=== PATIENT | female | born 1950 | race Caucasian/White ===

== ENCOUNTER 2016-12-05 17:07 | Emergency (ER) | payer OTHER ==
[2016-12-05 17:30] LABS: BASOPHILS % 0.1 (0.0-1.5); EOSINOPHILS % 0.5 % (0.0-6.8); LYMPHOCYTES # 0.6 # k/uL (0.6-4.0); MEAN CORPUSCULAR HEMOGLOBIN 32.9 pg (28.0-34.0); MONOCYTES # 0.3 # k/uL (0.0-0.9); MONOCYTES % 3.4 % (0.0-11.0); NEUTROPHILS # 8.8 # k/uL (1.4-7.7)
[2016-12-05 17:44] LABS: eGFR (African) > 60; eGFR (Non-African) > 60
--- NOTE | 2016-12-05 18:10 | ED Physician Documentation ---
Altered Mental Status - HISTORIAN Historian: patient, other (daughters) - HPI Stated Complaint: bruising Chief Complaint: Altered Mental Status - ROS EYES/ENT: denies: problems with vision, sore throat, trouble swallowing CVS/RESP: none GI/: none MS/SKIN/LYMPH: none NEURO/PSYCH: headache - PAST HX Past History: confusion, other (hepatitis C) Surgeries/Procedures: none Immunizations: UTD - SOCIAL HX Smoking History: greater than 1 pack/day Alcohol Use: none Drug Use: none - FAMILY HX Family History: none - REVIEWED ASSESSMENTS Nursing Assessment Reviewed: Yes Vitals Reviewed: Yes <Noel Dave - Last Filed: 12/05/16 18:10> - HISTORIAN Historian: patient (cannot contribute to history), child (two sons and two daughters present) - HPI Last known Well Date: 12/04/16 Last Known Well Time: 20:00 Last known Well Code/Unknown Code: Unknown Character of Altered Mental Status: other (no memory of yesterday's events with children or of how injuries occurred) Context: other (unknown) Cognition is Usually: alert, oriented x3 (per children) Gait is Usually: walks w/o assistance Associated Symptoms: other (injuries) - ROS CVS/RESP: none GI/: none <JAYMIE DE LEON - Last Filed: 12/05/16 19:41> - HPI Additional Information: 66yo F here for eval of AMS and bruising. Daughters are at bedside, state they last spoke with her last night around 1999 and was completely normal without bruising. They found her on the floor today naked with bruising throughout her body, most notably on her face. She also has altered mental status, amnesia for most events yesterday and today believes in is 1990. She denies illicit drug use , etoh use, trauma. Denies MVC or domestic abuse. She tells me that her dog jumped on her, causing all of her bruising. All other systems reviewed and negative. (Noel Dave) - PAST HX Allergies/Adverse Reactions: Allergies Allergy/AdvReac Type Severity Reaction Status Date / Time loxapine HCl [From Loxitane] Allergy Verified 12/05/16 17:40 loxapine succinate Allergy Verified 12/05/16 17:40 [From Loxitane] Home Medications: Ambulatory Orders Medication Instructions Recorded Diazepam [Valium] 5 mg PO QDAY 12/05/16 Gabapentin [Neurontin] 100 mg PO BID 12/05/16 - VITAL SIGNS Vital Signs: Vital Signs Temp Pulse Resp BP Pulse Ox 98.4 F 80 16 133/80 97 12/05/16 17:21 12/05/16 17:21 12/05/16 17:21 12/05/16 17:21 12/05/16 17:21 (Noel Dave) (JAYMIE DE LEON) Progress <Noel Dave - Last Filed: 12/05/16 18:10> <JAYMIE DE LEON - Last Filed: 12/05/16 19:41> - Progress Progress: CT abdomen and pelvis with contrast CLINICAL HISTORY: Abdominal pain. Trauma. Nausea and vomiting. Elevated amylase. Contrast administered: 94 mL of Omnipaque. TECHNIQUE: CT of the abdomen and pelvis is performed with intravenous infusion of contrast. Sagittal and coronal reconstructions are performed by the technologist. FINDINGS: Visualized lung bases are clear. The liver and spleen demonstrate normal attenuation with focal fatty infiltration near the falciform ligament. Gallbladder is normally distended. There is no pancreatic or adrenal abnormality. Kidneys demonstrate symmetric enhancement. Vascular calcification is present in the abdominal aorta without evidence of aneurysm. There is no retroperitoneal mass or significant adenopathy. The appendix is visualized and is within normal limits. Free fluid is seen in the pelvis that is of uncertain etiology. Bladder is unremarkable. Mild spondylitic changes are seen in lumbar vertebrae. IMPRESSION: Small amount of free fluid in the pelvis. Vascular calcification. No other evidence of solid organ injury. Electronically signed on Dec 05, 2016 7:11:58 PM TELECOMMUNICATIONS PROFESSIONAL by: Facundo Jordan CT brain noncontrast CLINICAL HISTORY: CT BRAIN W/O, ALTERED MENTAL STATUS (Hx) / AMS (DICOM Hx) TECHNIQUE: 5 mm contiguous axial images of the brain, noncontrast. FINDINGS: There is no evidence of intracranial mass effect, hemorrhage, or acute hydrocephalus. The lateral ventricles are symmetrical and the 4th ventricle is midline without shift. No acute brain parenchymal changes or extra-axial fluid collections are identified. The posterior fossa contents are within normal limits. The calvarium is intact. The visualized sinuses and mastoid air cells are clear. IMPRESSION: No acute intracranial process. Electronically signed on Dec 05, 2016 5:52:35 PM TELECOMMUNICATIONS PROFESSIONAL by: Shimon Mcleod 3 views right foot Clinical history: Right foot pain Findings: There is a small fracture at the base of the 1st proximal phalanx with minimal medial displacement. This extends to the articular surface of the 1st proximal phalanx at the mcp joint. No other fractures identified. Impression: 1st proximal phalanx fracture as above Electronically signed on Dec 05, 2016 5:54:57 PM TELECOMMUNICATIONS PROFESSIONAL by: Shimon cMleod 193, Accepted for direct admit to [facility] per Dr. Bautista (JAYMIE DE LEON) Altered Mental Status Physical - Physical Exam General Appearance: no acute distress, other (confused) Neuro/Psych: headache mood/affect nml, abnml respond to command, eyes open, slow to respond, other ( alert to place and self, thinks it is 1991) nml as tested Cerebellar Exam: nml as tested Peripheral Exam: motor nml, sensation nml, reflexes nml. No: hemiparesis, hemiplegia, pronator drift HEENT: CASIE (pupils 2, reactive), ENT inspection nml, other (multiple bruises in different stagtes of healing throughout face. Periorbital hematoma on R. Newer appearing bruising inferior R chin, L temporal region. Bluish type bruises in hairline. ) Neck: normal inspection, supple, other (no cervical tenderness). No: lymphadenopathy Respiratory: no resp distress, chest non-tender, breath sounds normal CVS: reg rate & rhythm, heart sounds normal, no murmur Abdomen: non-tender, no organomegaly, nml bowel sounds Skin: other (diffuse bruising b/l UE/LE. There is significant swelling R great toe. There are excoriations UE b/l. ) Extremities: other (tenderness and bruising R great toe. Neurovascular intact.) <Noel Dave - Last Filed: 12/05/16 18:10> Discharge <Noel Dave - Last Filed: 12/05/16 18:10> Decision to Admit: NO Decision Time: 19:34 <JAYMIE DE LEON - Last Filed: 12/05/16 19:41> Clincal Impression: Toe fracture, right Qualifiers: Encounter type: initial encounter Toe: great toe Fracture type: closed Phalanx : proximal Fracture alignment: nondisplaced Qualified Code(s): S92.414A - Nondisplaced fracture of proximal phalanx of right great toe, initial encounter for closed fracture Altered mental status Qualifiers: Altered mental status type: unspecified Qualified Code(s): R41.82 - Altered mental status, unspecified Referrals: Primary Doctor,No [Primary Care Provider] - 2 Days Home Medications: Ambulatory Orders Diazepam [Valium] 5 mg PO QDAY 12/05/16 Gabapentin [Neurontin] 100 mg PO BID 12/05/16 Condition: Fair Disposition: XFER [facility]
[2016-12-05] MEDS ORDERED: fentaNYL CITRATE/PF 100 MCG/ 2ML AMP IVP ONE (18:18)
[2016-12-05] MEDS ORDERED: 0.9 % SODIUM CHLORIDE 1,000 ML IV ONE (18:21)
[2016-12-05 18:25] LABS: APPEARANCE,URINE Clear (CLEAR); COLOR,URINE Yellow (YELLOW); OCCULT BLOOD,URINE 1+ (NEGATIVE); PH URINE 7.5 (5.0 - 8.0); UROBILINOGEN URINE 0.2 Eu (0.2-1.0)
[2016-12-05 18:27] LABS: AMPHETAMINE NEGATIVE ng/mL (<1000); BARBITURATES NEGATIVE ng/mL (<300); METHAMPHETAMINE NEGATIVE ng/mL (<1000)
[2016-12-05 18:28] LABS: CANNABINOIDS NON NEGATIVE ng/mL (<50); COCAINE NEGATIVE ng/mL (<150); METHYLENEDIOXYMETHAMPHETAMINE NEGATIVE ng/mL (<500)
[2016-12-05 18:33] LABS: AMORPHOUS SEDIMENT,UR FEW (NEGATIVE)
--- NOTE | 2016-12-05 19:13 | Diagnostic Imaging Report ---
KOLTON PATINO [facility] [address] [facility] [address] [address] Report Submission Date: Dec 05, 2016 5:54:57 PM CATCHER HELPER Patient Study Name: CHASE GUTIERREZ Date: Dec 05, 2016 5:34:45 PM CATCHER HELPER Modality Type: CR Gender: F Description: LOWER EXTREMITY : 50 Institution: [facility] Physician: KOLTON PATINO 3 views right foot Clinical history: Right foot pain Findings: There is a small fracture at the base of the 1st proximal phalanx with minimal medial displacement. This extends to the articular surface of the 1st proximal phalanx at the mcp joint. No other fractures identified. Impression: 1st proximal phalanx fracture as above Electronically signed on Dec 05, 2016 5:54:57 PM CATCHER HELPER by: Shimon RIVAS
--- NOTE | 2016-12-05 19:13 | Diagnostic Imaging Report ---
KOLTON PATINO [facility] [address] [facility] [address] [place], [place]. [address] Report Submission Date: Dec 05, 2016 5:52:35 PM OSTEOPATHIC PHYSICIAN Patient Study Name: CHASE GUTIERREZ Date: Dec 05, 2016 5:24:44 PM OSTEOPATHIC PHYSICIAN Modality Type: CT\SR Gender: F Description: CT BRAIN W/O CONTRAST : 50 Institution: [facility] Physician: KOLTON PATINO CT brain noncontrast CLINICAL HISTORY: CT BRAIN W/O, ALTERED MENTAL STATUS (Hx) / AMS (DICOM Hx) TECHNIQUE: 5 mm contiguous axial images of the brain, noncontrast. FINDINGS: There is no evidence of intracranial mass effect, hemorrhage, or acute hydrocephalus. The lateral ventricles are symmetrical and the 4th ventricle is midline without shift. No acute brain parenchymal changes or extra-axial fluid collections are identified. The posterior fossa contents are within normal limits. The calvarium is intact. The visualized sinuses and mastoid air cells are clear. IMPRESSION: No acute intracranial process. Electronically signed on Dec 05, 2016 5:52:35 PM OSTEOPATHIC PHYSICIAN by: Shimon RIVAS
--- NOTE | 2016-12-05 19:14 | Diagnostic Imaging Report ---
KOLTON PATINO [facility] [address] [facility] [address] [place], [place]. [address] Report Submission Date: Dec 05, 2016 7:11:58 PM BUSINESS DEVELOPMENT RECRUITER Patient Study Name: CHASE GUTIERREZ Date: Dec 05, 2016 6:44:40 PM BUSINESS DEVELOPMENT RECRUITER Modality Type: CT\SR Gender: F Description: CT ABD & PELVIS W/ CON : 50 Institution: [facility] Physician: KOLTON PATINO [facility] CT abdomen and pelvis with contrast CLINICAL HISTORY: Abdominal pain. Trauma. Nausea and vomiting. Elevated amylase. Contrast administered: 94 mL of Omnipaque. TECHNIQUE: CT of the abdomen and pelvis is performed with intravenous infusion of contrast. Sagittal and coronal reconstructions are performed by the technologist. FINDINGS: Visualized lung bases are clear. The liver and spleen demonstrate normal attenuation with focal fatty infiltration near the falciform ligament. Gallbladder is normally distended. There is no pancreatic or adrenal abnormality. Kidneys demonstrate symmetric enhancement. Vascular calcification is present in the abdominal aorta without evidence of aneurysm. There is no retroperitoneal mass or significant adenopathy. The appendix is visualized and is within normal limits. Free fluid is seen in the pelvis that is of uncertain etiology. Bladder is unremarkable. Mild spondylitic changes are seen in lumbar vertebrae. IMPRESSION: Small amount of free fluid in the pelvis. Vascular calcification. No other evidence of solid organ injury. Electronically signed on Dec 05, 2016 7:11:58 PM BUSINESS DEVELOPMENT RECRUITER by: Facundo RIVAS
[2016-12-05] MEDS ORDERED: MORPHINE SULFATE 10 MG/ML AMP IVP ONE (19:46)
[2016-12-05] MEDS ORDERED: ONDANSETRON HCL/PF 4 MG/ 2ML VIAL IVP ONE (19:47)
[2016-12-05] MEDS ORDERED: MORPHINE SULFATE 10 MG/ML AMP ONE (19:48)
[2016-12-05] MEDS ORDERED: ONDANSETRON HCL/PF 4 MG/ 2ML VIAL ONE (19:48)
[2016-12-05] MEDS ORDERED: MORPHINE SULFATE 2 MG/ML DISP.SYRIN IVP ONE (19:58)
[2016-12-05 20:19] VITALS: BP 122/69
[2016-12-10 11:02] LABS: CANNABINOIDS CONFIRMATION >150 ng/mL (<15)
== END 2016-12-05 20:05 | disposition short-term general hospital (02) ==
LOC: ED 17:07
DX: S92.414A Nondisplaced fracture of proximal phalanx of right great toe, initial encounter for closed fracture (principal); R41.82 Altered mental status, unspecified; X58.XXXA Exposure to other specified factors, initial encounter; Y93.9 Activity, unspecified; Y99.9 Unspecified external cause status
CPT/HCPCS: 70450; 73630; 74177; 80053; 80302; 80304; 80320; 80377; 81002; 82150; 85025; J2270; J2405; J3010; J7030; Q9966; 99283; 99284; G0477; G0479; G0480; G0481; S1016